=== PATIENT | male | born 1950 | race Hispanic/Latino ===

== ENCOUNTER 2017-11-18 09:50 | Day surgery (SDC) | payer BC ==
[2017-11-17 14:38] VITALS: BMI 40.7
[2017-11-18] MEDS ORDERED: Lactated Ringer's 500 ML IV SCH (10:30)
[2017-11-18 10:36] VITALS: TEMP 98
[2017-11-18] MEDS ORDERED: Lactated Ringer's 500 ML IV ONE ×2 (10:51)
[2017-11-18] MEDS ORDERED: Propofol 10 mg/ml Inj (20 ML) ONE (10:54)
--- NOTE | 2017-11-18 11:44 | CP.SDSHP ---
Same Day Surgery H & P - History Proposed Procedure: colonoscopy - Previous Medical/Surgical History Cardiac: Hypertension, Hx of CHF - Allergies Allergies: Allergies No Known Allergies Allergy (Verified 11/17/17 14:38) - Physical Exam Vital Signs: Vital Signs 11/18/17 11/18/17 10:25 11:03 Temperature 98 F Pulse Rate 59 L 60 Respiratory 18 18 Rate Blood Pressure 136/72 133/70 O2 Sat by Pulse 95 98 Oximetry - Date & Time Date: 11/18/17 Time: 11:44 Short Stay Discharge - Short Stay Discharge Admitting Diagnosis/Reason for Visit: ENCOUNTER FOR SCREENING FOR MALIGNANT NEOPLASM OF Disposition: HOME/ ROUTINE Referrals: Champ Rodriguez MD [Primary Care Provider] -
[2017-11-18 11:59] VITALS: PULSE 50; O2SAT 96
[2017-11-18 12:44] VITALS: BP 118/61; RESP 19
== END 2017-11-18 12:43 | disposition home or self-care (01) ==
LOC: C.ENDO 09:50
PROVIDERS: ATTEND Colon & Rectal Surgery
DX: Z12.11 Encounter for screening for malignant neoplasm of colon (principal); K62.1 Rectal polyp; K63.5 Polyp of colon; D12.0 Benign neoplasm of cecum; K57.30 Diverticulosis of large intestine without perforation or abscess without bleeding
CPT/HCPCS: 45384; 88305; J2704; J7120